=== PATIENT | male | born 1975 | race Caucasian/White ===

== ENCOUNTER → 2024-03-31 17:30 | Outpatient (REF) | payer BC, SELFPAY | LOC: RAD 17:30 | PROVIDERS: ATTENDING PHYSICIAN Family Medicine | DX: M25.512 Pain in left shoulder (principal) | CPT/HCPCS: 73030; 73060 ==

== ENCOUNTER → 2024-05-06 18:01 | Outpatient (REF) | payer BC, SELFPAY | LOC: PAVMRI 18:01 | PROVIDERS: ATTENDING PHYSICIAN Family Medicine; FAMILY PHYSICIAN Family Medicine | DX: M25.512 Pain in left shoulder (principal) | CPT/HCPCS: 73221 ==

== ENCOUNTER 2025-02-12 06:31 | Day surgery (SDC) | payer BC, SELFPAY | END 2025-02-12 15:25 | disposition home or self-care (01) | LOC: GI 06:31 | PROVIDERS: ATTENDING PHYSICIAN Internal Medicine Gastroenterology | DX: Z12.11 Encounter for screening for malignant neoplasm of colon (principal); K64.0 First degree hemorrhoids; D12.0 Benign neoplasm of cecum | CPT/HCPCS: 45385; 45380; 88305 ==